=== PATIENT | male | born 1985 | race African-American/Black ===

== ENCOUNTER 2017-05-22 19:13 | Emergency (ER) | payer OTHER ==
[~2017-05-22] VITALS: Ht 188 cm; Wt 115.0 kg
[2017-05-23] MEDS ORDERED: HYDROCODONE/ACETAMINOPHEN 10/325MG TABLET PO ONE (00:45)
[2017-05-23 02:25] VITALS: BP 146/89
== END 2017-05-23 02:41 | disposition home or self-care (01) ==
LOC: ER 21:27
DX: S16.1XXA Strain of muscle, fascia and tendon at neck level, initial encounter (principal); T14.8XXA Other injury of unspecified body region, initial encounter; V43.52XA Car driver injured in collision with other type car in traffic accident, initial encounter; Y93.89 Activity, other specified; Y99.8 Other external cause status; Y92.89 Other specified places as the place of occurrence of the external cause
CPT/HCPCS: 71010; 72040; 99284